=== PATIENT | female | born 1950 | race Caucasian/White ===

== ENCOUNTER → 2016-10-30 | Outpatient (CLI) | payer OTHER | LOC: FIMAGING 14:02 | DX: Z12.31 Encounter for screening mammogram for malignant neoplasm of breast (principal) | CPT/HCPCS: G0202 ==

== ENCOUNTER → 2016-12-31 | Outpatient (CLI) | payer OTHER | LOC: FIMAGING 14:29 | PROVIDERS: ATTEND Family Medicine | DX: Z13.820 Encounter for screening for osteoporosis (principal); M85.80 Other specified disorders of bone density and structure, unspecified site; Z82.62 Family history of osteoporosis ==

== ENCOUNTER 2017-06-06 09:00 | Day surgery (SDC) | payer OTHER ==
[2017-06-06] MEDS ORDERED: ASPIRIN EC 325 MG TAB PO ONE (09:04)
[2017-06-06] MEDS ORDERED: DIAZEPAM 5 MG TAB PO ONE (09:04)
[2017-06-06] MEDS ORDERED: diphenhydrAMINE 25 MG CAP PO ONE (09:04)
[2017-06-06] MEDS ORDERED: NS 1,000 ML IV ONE (09:04)
[2017-06-06] MEDS ORDERED: FAMOTIDINE 20 MG TAB PO ONE (09:04)
[2017-06-06] MEDS ORDERED: FAMOTIDINE 20 MG TAB ONE (09:25)
[2017-06-06] MEDS ORDERED: DIAZEPAM 5 MG TAB ONE (09:26)
--- NOTE | 2017-06-06 09:26 | CPEKG ---
Heart Rate: 90 RR Interval: 667 P-R Interval: 148 QRSD Interval: 84 QT Interval: 356 QTC Interval: 436 P [place]: 79 QRS [place]: 58 T Wave [place]: 43 EKG Severity - BORDERLINE ECG - EKG Impression: SINUS RHYTHM EKG Impression: NONSPECIFIC ST_T WAVE ABNORMAILITES Electronically Signed By: Ernie Duron 07-Jun-2017 20:39:20
[2017-06-06] MEDS ORDERED: ASPIRIN EC 81 MG TAB PO ONE (09:28)
[2017-06-06 09:40] LABS: % IMMATURE GRANULYOCYTES 0.3 % (0.0-1.1); ABSOLUTE IMMATURE GRANULOCYTES 0.02 10^3/uL (0.00-0.10); ADD DIFF? NO; ADD MORPH? NO; ADD SCAN? NO; ATYPICAL LYMPHOCYTE FLAG 10 (0-99); FRAGMENT RBC FLAG 0 (0-99); HEMATOCRIT 41.4 % (38.0-47.0); HEMOGLOBIN 13.9 g/dL (12.6-16.3); LEFT SHIFT FLG 0 (0-99); LIPEMIA HEMOLYSIS FLAG 80 (0-99); MEAN CELL HEMOGLOBIN 32.9 pg (27.9-34.1); MEAN CELL HEMOGLOBIN CONCENTR. 33.6 g/dL (32.4-36.7); MEAN CELL VOLUME 97.9 fL (81.5-99.8); MEAN PLATELET VOLUME 9.2 fL (8.7-11.7); PLATELET CLUMPS FLAG 0 (0-99); PLATELET COUNT 251 10^3/uL (150-400); RED BLOOD CELL COUNT 4.23 10^6/uL (4.18-5.33); RED CELL DISTRIBUTION WIDTH 12.5 % (11.5-15.2)
[2017-06-06 09:49] LABS: INR 0.92 (0.83-1.16); PROTIME(PATIENT) 12.6 SEC (12.0-15.0)
[2017-06-06 10:02] LABS: ANION GAP 13 mEq/L (8-16); CALCIUM 9.5 mg/dL (8.5-10.4); CARBON DIOXIDE 22 mEq/l (22-31); CHLORIDE 107 mEq/L (97-110); CHOLESTEROL 184 mg/dL (140-220); CHOLESTEROL/HDL RATIO 2.92 RATIO (1.00-4.44); CREATININE 0.8 mg/dL (0.6-1.0); GLOMERULAR FILTRATION RATE > 60; GLUCOSE 113 mg/dL (70-100); HIGH DENSITY LIPOPROTEIN 63 mg/dL (40-85); LDL/HDL RATIO 1.62 RATIO (1.00-3.22); LOW DENSITY LIPOPROTEIN 102 mg/dL (80-100); MAGNESIUM 1.8 mg/dL (1.6-2.3); NON-HIGH DENSITY LIPOPROTEIN 121 mg/dL (90-129); POTASSIUM 3.5 mEq/L (3.5-5.2); SODIUM 142 mEq/L (134-144); TRIGLYCERIDE 99 mg/dL (35-135); VERY LOW DENSITY LIPOPROTEINS 19 mg/dL (8-25)
--- NOTE | 2017-06-06 11:26 | PDPROPOC ---
Sedation Plan of Care Sedation Plan of Care: vital signs stable, mental status noted, patient educated of risks, benefits, alternatives, patient can tolerate sedation ASA Classification: ASA 3 Planned drugs: fentanyl, midazolam Mallampati Score: Class 3 Mallampati Reference Image: Patient passed 3-3-2 rule?: Yes
--- NOTE | 2017-06-06 11:27 | PDHPUP ---
History & Physical Update H&P update statement: This history and physical update is based on an assessment of the patient which was completed after admission or registration (within 24 hours), but prior to the surgery/procedure. H&P update: H&P reviewed & patient examined, no change in patient's condition since H&P completed
[2017-06-06] MEDS ORDERED: LIDOCAINE 1% 300 MG/30 ML SDV ONE (11:43)
[2017-06-06] MEDS ORDERED: MIDAZOLAM 2 MG/2 ML VIAL ONE (11:44)
[2017-06-06] MEDS ORDERED: IOPAMIDOL (ISOVUE-370) 150 ML BTL IV ONE (11:44)
[2017-06-06] MEDS ORDERED: fentaNYL 100 MCG/2 ML INJ ONE (11:44)
[2017-06-06] MEDS ORDERED: ATROPINE SULFATE 1 MG/10 ML SYR ONE (12:50)
[2017-06-06] MEDS ORDERED: ATROPINE SULFATE 1 MG/10 ML SYR IVP PRN (15:33)
[2017-06-06] MEDS ORDERED: ONDANSETRON 4 MG/2 ML VIAL IVP PRN (15:33)
[2017-06-06] MEDS ORDERED: NITROGLYCERIN 0.4 MG BTL SL PRN (15:33)
[2017-06-06] MEDS ORDERED: OXYCODONE/APAP 5/325 TAB PO PRN (15:33)
[2017-06-06] MEDS ORDERED: HYDROCODONE/APAP 5/325 TAB PO PRN (15:33)
--- NOTE | 2017-06-08 00:47 | CPIP ---
[f rep st] INVASIVE CARDIAC PROCEDURE PROCEDURE PERFORMED: 1. Selective coronary angiography. 2. Left heart catheterization. 3. Left ventriculogram. 4. Manual pressure arteriotomy repair. COMPLICATIONS: None. KEYSMITH: Ernie Duron MD. APPROACH: This was a right groin approach. INDICATIONS/APPROPRIATE USE CRITERIA: The patient has not had a stress test, but has CCS class 4 sym ptoms of chest discomfort at rest, as well as a positive calcium score at 1900, which is the highest calcium score I have seen in the last 3-5 years in female patients. The patient has a strong family history of premature cardiovascular illness. PROCEDURE IN DETAIL: After informed consent was obtained, n.p.o. status was confirmed. The region o f the right groin was cleaned, prepped and draped in sterile fashion. A micropuncture set was used t o gain access to the right superficial femoral artery. The patient does have a high bifurcation. Th e patient underwent the previously mentioned diagnostic procedures with use of JL4 and R4 curved kalin nary catheters, as well as a 6-English pigtail catheter. Standard wire exchange technique was utilize d for all catheter exchanges. The left main coronary lumen is approximately 5 mm in size and bifurcates into an LAD and circumflex system, as is common in women of her age. The LAD and diagonal vessels are very tortuous and look li ke a corkscrew. However, there is no evidence of flow-limiting obstruction, dissection, or thrombus. There was MANE-3 flow throughout the LAD diagonal system. The circumflex obtuse marginal is likewi se a nice vessel, approximately 2.5 mm in size proximally, giving rise to 2 important obtuse marginal branches also somewhat tortuous in their appearance. There is no evidence flow-limiting obstruction , dissection, or thrombus. The right coronary artery is dominant, giving rise to posterior descending as well as the posterolate ral ventricular branch. No significant flow-limiting obstruction is identified. Diffuse luminal irr egularity and heavy calcifications noted in the right and left coronary systems, without flow-limitin g obstruction, dissection, or thrombus. The patient underwent left heart catheterization, demonstrating mildly elevated left ventricular end- diastolic pressure measured at 17 mmHg. The patient underwent left ventriculogram in the [facility] project ion, demonstrating hypercontractile left ventricular systolic function. Ejection fraction greater th an 65%, estimated at 75%. No evidence of mitral regurgitation or aortic stenosis was noted upon pull back across the aortic valve and with pressurized injection of the left ventricle. 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 SUMMARY OF FINDINGS: Severe lummi vessel coronary disease with plaquing and relatively dense calcif ication of the LAD proper. There is no evidence of flow-limiting obstruction, however, and the patie nt is deemed to be a good candidate for medical therapy with aspirin specifically and statins to achi oswald a non-HDL cholesterol of less than 100. Patient knows to report immediately to the emergency dep artment if she ever experiences even atypical symptoms suggestive of heart attack, which in elderly l ightweight woman could be isolated, nausea, diaphoresis, shortness of breath, or feeling of malaise. Certainly, symptoms that are typical of chest discomfort should also be evaluated in the emergency d epartment, such as chest pressure, tightness, radiates to the neck or back or jaw, and associated wit h constitutional symptoms. Luckily for this patient, she has a high calcium score, without evidence of flow-limiting obstruction of any kind, and therefore is a candidate for medical therapy. /[id number]/MODL
== END 2017-06-06 16:32 | disposition home or self-care (01) ==
LOC: FCATH 09:00
PROVIDERS: ATTEND Internal Medicine Cardiovascular Disease
PROC: B2111ZZ Fluoroscopy of Multiple Coronary Arteries using Low Osmolar Contrast (ICD-10-PCS; principal; 2017-06-06)
PROC: 4A023N7 Measurement of Cardiac Sampling and Pressure, Left Heart, Percutaneous Approach (ICD-10-PCS; principal; 2017-06-06)
PROC: B2151ZZ Fluoroscopy of Left Heart using Low Osmolar Contrast (ICD-10-PCS; principal; 2017-06-06)
DX: I25.119 Atherosclerotic heart disease of native coronary artery with unspecified angina pectoris (principal); E78.5 Hyperlipidemia, unspecified; E03.9 Hypothyroidism, unspecified; Z82.49 Family history of ischemic heart disease and other diseases of the circulatory system; F17.210 Nicotine dependence, cigarettes, uncomplicated
CPT/HCPCS: J0461; J1644; J2250; J3010; Q9967

== ENCOUNTER → 2017-10-31 | Outpatient (CLI) | payer OTHER | LOC: FIMAGING 12:36 | PROVIDERS: ATTEND Family Medicine | DX: Z12.31 Encounter for screening mammogram for malignant neoplasm of breast (principal) ==

== ENCOUNTER → 2017-11-19 | Outpatient (CLI) | payer OTHER | LOC: FIMAGING 12:33 | PROVIDERS: ATTEND Family Medicine | DX: R92.8 Other abnormal and inconclusive findings on diagnostic imaging of breast (principal) ==

== ENCOUNTER → 2018-11-03 | Outpatient (CLI) | payer OTHER | LOC: FIMAGING 12:29 | PROVIDERS: ATTEND Family Medicine | DX: Z12.31 Encounter for screening mammogram for malignant neoplasm of breast (principal) ==